=== PATIENT | male | born 1965 | race Caucasian/White ===

== ENCOUNTER 2016-08-15 19:23 | Emergency (ER) | payer BC, MEDICAID, MEDICARE ==
[~2016-08-15] VITALS: Ht 185.4 cm; Wt 79.2 kg
[~2016-08-15 19:23] MED LIST: percocet
[2016-08-15] MEDS ORDERED: SODIUM CHLORIDE 0.9% 1,000 ML IV ONE (19:36)
[2016-08-15] MEDS ORDERED: SODIUM CHLORIDE 0.9% 1,000ML IVBOLUS ONE (20:00)
[2016-08-15] MEDS ORDERED: SODIUM CHLORIDE FLUSH 10ML SYR IVF ONE (20:00)
[2016-08-15 20:21] LABS: ASPARTATE AMINO TRANSFERASE 32 U/L (15-37); BLOOD UREA NITROGEN 27 mg/dL (7-18)
[2016-08-15] MEDS ORDERED: PANTOPRAZOLE 40 MG IV IVPush ONE (21:00)
[2016-08-15] MEDS ORDERED: MORPHINE SULFATE 4 MG/ML, 1ML IVPush PRN (21:00)
[2016-08-15] MEDS ORDERED: SODIUM CHLORIDE 0.9%, 500ML IVBOLUS ONE (21:00)
[2016-08-15] MEDS ORDERED: PANTOPRAZOLE 40 MG IV ONE (21:20)
[2016-08-15] MEDS ORDERED: MORPHINE SULFATE 4 MG/ML, 1ML ONE (21:20)
[2016-08-15] MEDS ORDERED: OMNIPAQUE 350 MG/ML, 100ML BOTTLE ONE (22:24)
[2016-08-15 23:24] VITALS: BP 138/97
== END 2016-08-15 23:49 | disposition home or self-care (01) ==
LOC: ED 23:30
DX: K52.9 Noninfective gastroenteritis and colitis, unspecified (principal); E78.00 Pure hypercholesterolemia, unspecified; Z79.82 Long term (current) use of aspirin; F17.210 Nicotine dependence, cigarettes, uncomplicated
CPT/HCPCS: 36415; 74022; 74177; 80053; 81003; 83690; 85025; 86677; 96361; 96374; 96375; 99285; C9113; J7030; J7040; Q9967

== ENCOUNTER → 2016-10-10 | Outpatient (CLI) | payer MEDICARE | END | disposition home or self-care (01) | LOC: CFH 11:30 | PROVIDERS: ATTEND Internal Medicine | DX: R93.5 Abnormal findings on diagnostic imaging of other abdominal regions, including retroperitoneum (principal); R19.7 Diarrhea, unspecified | CPT/HCPCS: 74245 ==

== ENCOUNTER → 2018-02-18 | Outpatient (CLI) | payer MEDICARE | END | disposition home or self-care (01) | LOC: CFH 11:54 | PROVIDERS: ATTEND Internal Medicine | DX: Z12.2 Encounter for screening for malignant neoplasm of respiratory organs (principal); R91.8 Other nonspecific abnormal finding of lung field; I25.10 Atherosclerotic heart disease of native coronary artery without angina pectoris; F17.210 Nicotine dependence, cigarettes, uncomplicated | CPT/HCPCS: G0297 ==

== ENCOUNTER → 2019-07-02 | Outpatient (CLI) | payer MEDICARE | END | disposition home or self-care (01) | LOC: CFH 12:35 | PROVIDERS: ATTEND Internal Medicine Critical Care Medicine | DX: R91.8 Other nonspecific abnormal finding of lung field (principal); J43.8 Other emphysema | CPT/HCPCS: 71250 ==